=== PATIENT | female | born 1970 | race Caucasian/White ===

== ENCOUNTER 2022-05-30 14:26 | Emergency (ER) | payer OTHER ==
[~2022-05-30] VITALS: Ht 172.7 cm; Wt 46.8 kg
[~2022-05-30 14:26] MED LIST: NO HOME MEDICATIONS
[2022-05-30 14:39] VITALS: TEMP 98.7
[2022-05-30 15:18] LABS: BASO # 0.1 K/mm3 (0.0-0.2); BASO % 1.5 % (0.0-2.0); EOS % 0.5 % (0.0-4.0); GRAN # 3.4 K/mm3 (1.4-6.5); GRAN % 62.8 % (42.2-75.2); HEMATOCRIT 40.9 % (37.0-47.0); HEMOGLOBIN 13.4 g/dl (12.5-16.0); LYMPH # 1.6 K/mm3 (1.2-3.4); LYMPH % 28.8 % (20.0-51.0); MEAN CELL VOLUME 92 fl (80.0-100.0); MEAN CORPUSCULAR HEMOGLOBIN 30 pg (27-31); MEAN CORPUSCULAR HGB CONC 33 g/dl (33.0-37.0); MEAN PLATELET VOLUME 9.3 fl (7.4-10.4); MONO # 0.3 K/mm3 (0.1-0.6); PLATELET COUNT 289 K/mm3 (130-400); RED BLOOD COUNT 4.44 M/mm3 (4.10-5.30); REDCELL DISTRIBUTION WIDTH-CV 12.5 % (11.5-14.5)
[2022-05-30 15:34] LABS: ALANINE AMINOTRANSFERASE 20 U/L (0-55); ALBUMIN 4.4 gm/dL (3.5-5.0); ALKALINE PHOSPHATASE 93 U/L (40-150); ANION GAP 11 mmol/L (7-16); AST,SGOT 16 U/L (5-34); BILIRUBIN,TOTAL 0.6 mg/dL (0.2-1.2); BLOOD UREA NITROGEN 15 mg/dL (10-20); CALCIUM 9.9 mg/dL (8.4-10.2); CARBON DIOXIDE 27 mmol/L (22-29); CHLORIDE 106 mmol/L (98-107); CREATININE, serum 0.95 mg/dL (0.57-1.11); GLUCOSE 100 mg/dL (70-99); POTASSIUM 3.7 mmol/L (3.5-4.5); SODIUM 144 mmol/L (136-145); TOTAL PROTEIN 7.8 gm/dL (6.2-8.1)
[2022-05-30 15:35] LABS: ACETAMINOPHEN < 1.0 ug/mL (10-30); ALCOHOL(ethanol),MEDICAL < 10 mg/dL (0-10); SALICYLATE < 5.0 mg/dL (15.0-30.0)
[2022-05-30 16:41] LABS: COLLECTION METHOD CLEAN CATCH
[2022-05-30 16:44] LABS: URINE APPEARANCE Clear (CLEAR/HAZY); URINE COLOR Yellow (YELLOW)
[2022-05-30 16:45] LABS: URINE BLOOD 1+ (NEGATIVE); URINE GLUCOSE Negative (NEGATIVE); URINE KETONE Negative (NEGATIVE); URINE NITRATE Negative (NEGATIVE); URINE PROTEIN(semi-quant) Negative (NEGATIVE); URINE UROBILINOGEN 0.2 E.U/dL (0.2-1.0)
[2022-05-30 16:56] LABS: TRICYCLIC ANTIDEPRESS URINE NEGATIVE
[2022-05-30 17:03] LABS: SQUAMOUS EPITHELIAL 0-2 /hpf (0-10); URINE BACTERIA None Seen /hpf (NONE SEEN); URINE RBC 0-2 /hpf (0-2)
[2022-05-30 17:37] VITALS: BP 130/83; PULSE 85
== END 2022-05-30 18:10 | disposition home or self-care (01) ==
LOC: COL.ER 14:26
PROVIDERS: Physician Assistant
DX: S09.90XA Unspecified injury of head, initial encounter (principal); S80.01XA Contusion of right knee, initial encounter; R45.851 Suicidal ideations; F32.A Depression, unspecified; Z28.310 Unvaccinated for COVID-19; W18.30XA Fall on same level, unspecified, initial encounter

== ENCOUNTER 2023-07-04 21:47 | Inpatient (IN) | payer OTHER ==
[~2023-07-04] VITALS: Ht 172.7 cm; Wt 54.1 kg
--- NOTE | 2023-07-04 23:00 | NUR ---
PATIENT ARRIVED VIA EMS FROM [facility] WITH RIGHT HIP FX. A&O. VSS. REPORTS MOD PAIN IN RLE WITH MOVEMENT. EMS GAVE FENTANYL DURING TRANSPORT. PATIENT IS BEDREST BUT ROLLS/MOVES IN BED WELL AND IS ABLE TO USE THE BED TRIPATHI. PATIENT IS A FORMER RN. SCD'S TO BLE. NPO. IV INFUSING VIA PUMP INTO LEFT AC. HEAD TO TOE WNL. HOSPITALIST NOTIFIED OF ARRIVAL. NO OTHER NEEDS AT THIS TIME. CALL LIGHT IN REACH.
[2023-07-04] MEDS ORDERED: ZYPREXA 5MG5 MG PO (23:10)
[2023-07-04] MEDS ORDERED: PRISTIQ 50 MG T50 MG PO (23:11)
[2023-07-04] MEDS ORDERED: IBU800 M1 PO (23:11)
[2023-07-04] MEDS ORDERED: NORCO 325 MG-7.1 TAB PO (23:12)
[2023-07-04 23:17] VITALS: BP 126/72; PULSE 90; TEMP 99.5
[2023-07-04] MEDS ORDERED: Acetaminophen 500 MG TAB PO PRN (23:30)
[2023-07-04] MEDS ORDERED: Morphine 4 MG/ML VIAL IV PRN (23:30)
[2023-07-04] MEDS ORDERED: oxyCODONE 5 MG TAB PO PRN (23:30)
[2023-07-04] MEDS ORDERED: fentaNYL 50 MCG/ML 2 ML VIAL IV PRN (23:45)
[2023-07-05] VITALS (18 sets, daily range): BP systolic 114–135; BP diastolic 65–86; PULSE 77–96; TEMP 97.8–100.4
[2023-07-05 00:33] LABS: BASO # 0.1 K/mm3 (0.0-0.2); BASO % 1.1 % (0.0-2.0); EOS # 0.1 K/mm3 (0.0-0.7); EOS % 0.8 % (0.0-4.0); GRAN # 6.1 K/mm3 (1.4-6.5); GRAN % 83.6 % (42.2-75.2); HEMATOCRIT 32.7 % (37.0-47.0); HEMOGLOBIN 11.4 g/dl (12.5-16.0); LYMPH # 0.7 K/mm3 (1.2-3.4); LYMPH % 9.2 % (20.0-51.0); MEAN CELL VOLUME 91 fl (80.0-100.0); MEAN CORPUSCULAR HEMOGLOBIN 32 pg (27-31); MEAN CORPUSCULAR HGB CONC 35 g/dl (33.0-37.0); MEAN PLATELET VOLUME 9.6 fl (7.4-10.4); MONO # 0.4 K/mm3 (0.1-0.6); PLATELET COUNT 230 K/mm3 (130-400); RED BLOOD COUNT 3.59 M/mm3 (4.10-5.30); REDCELL DISTRIBUTION WIDTH-CV 13.1 % (11.5-14.5)
[2023-07-05 00:40] LABS: INR 1.2 (0.8-3.0); PROTHROMBIN TIME 13.1 SECONDS (9.7-12.8)
[2023-07-05 00:46] LABS: ALBUMIN 3.7 gm/dL (3.5-5.0); BILIRUBIN,TOTAL 0.5 mg/dL (0.2-1.2); CALCIUM 8.2 mg/dL (8.4-10.2); CREATININE, serum 0.85 mg/dL (0.57-1.11); POTASSIUM 3.9 mmol/L (3.5-4.5); TOTAL PROTEIN 6.7 gm/dL (6.2-8.1)
[2023-07-05] MEDS ORDERED: OLANZapine 5 MG TAB PO SCH (01:27)
[2023-07-05] MEDS ORDERED: NS 1,000 ML IV SCH ×3 (01:45→16:30)
--- NOTE | 2023-07-05 03:32 | NUR ---
RADIOLOGY AT BEDSIDE TO OBTAIN CXR. RESPIRATORY ALREADY OBTAINED EKG. WAITING FOR PATIENT TO VOID FOR UA.
[2023-07-05 05:39] LABS: COLLECTION METHOD CLEAN CATCH
[2023-07-05 05:46] LABS: URINE APPEARANCE CLEAR (CLEAR/HAZY); URINE BLOOD 3+ (NEGATIVE); URINE COLOR YELLOW (YELLOW); URINE GLUCOSE NEGATIVE (NEGATIVE); URINE KETONE 3+ (NEGATIVE); URINE NITRATE NEGATIVE (NEGATIVE); URINE PROTEIN(semi-quant) NEGATIVE (NEGATIVE); URINE UROBILINOGEN 0.2 E.U/dL (0.2-1.0)
--- NOTE | 2023-07-05 09:39 | NUR ---
PATIENT ALERT AND ORIENTED X4. VSS. PATIENT HERE FOR RIGHT HIP FRACTURE. IV TO LEFT AC WITH NS RUNNING AT 75ML/HOUR. SCD'S ON. PATIENT REPORTING PAIN 01/24. ICE PACK TO RIGHT HIP. PATIENT ON ROOM AIR. DR KEMP GAVE VERBAL ORDER TO THIS NURSE TO ADMINISTER ORAL PAIN MEDICATION AND SCHEDULED PO MED IV MEDICATION WAS NOT DUE. PATIENT IN BED, CALL LIGHT IN REACH.
[2023-07-05] MEDS ORDERED: LR 1,000 ML IV SCH (10:00)
[2023-07-05] MEDS ORDERED: Morphine 4 MG/ML VIAL IV PRN ×2 (10:30→16:30)
[2023-07-05] MEDS ORDERED: Lidocaine PF 2% (20 MG/ML) 5 ML VIAL ONE (12:17)
[2023-07-05] MEDS ORDERED: Tranexamic Acid 1,000 MG/10 ML VIAL ONE ×2 (12:18→15:45)
[2023-07-05] MEDS ORDERED: Midazolam 2 MG/2 ML VIAL ONE (12:20)
--- NOTE | 2023-07-05 12:39 | NUR ---
PATIENT OFF OF FLOOR FOR SURGERY
--- NOTE | 2023-07-05 13:27 | NUR ---
Initial visit; Patient wasn't normally responsive and uttered a continuous humming sound and stopped to ask Fret Saw Operator to "cover her behind." Fret Saw Operator said she was already covered and wished her well, receiving no response.
--- NOTE | 2023-07-05 13:42 | NUR ---
workers compensation adjuster attended interdisciplinary clinical rounding with Dr. Stanton. Patient reports to be in significant pain and wants to go to surgery [facility]. SW met with patient to discuss discharge planning. Patient reports she lives at home alone in [place]. PCP is Amita Benedict, [facility]. Dom (son) P# [phone] and Corey (boyfriend) P# [phone]. No issues affording her medications but patient has concern about the hospital stay. No DPOA-HC and does not wish to complete one during the hospital stay. Patient has crutches no other DME. Patient reports to be independent with ADLS. Patient would like to return to either her father, son or boyfriend's home when she is ready for discharge. SW expressed PT and OT will meet with her after her surgery to determine if she needs any other services prior to returning home. Patient understood and expressed she wanted her surgery [facility]. Discharge plan: Home, PT/OT recommendations after surgery
[2023-07-05] MEDS ORDERED: Phenylephrine 10 MG/ML VIAL ONE (14:05)
[2023-07-05] MEDS ORDERED: Topical Skin Adhesive 1 EACH (1 ML) TOP ONE (15:40)
[2023-07-05] MEDS ORDERED: Ondansetron 4 MG/2 ML VIAL IV PRN (16:30)
[2023-07-05] MEDS ORDERED: Magnes Hydrox (MOM) 80 MG/ML 30 ML CUP PO PRN (16:30)
[2023-07-05] MEDS ORDERED: oxyCODONE 5 MG TAB PO PRN (16:30)
[2023-07-05] MEDS ORDERED: Naloxone 0.4 MG/ML VIAL IV PRN (16:30)
[2023-07-05] MEDS ORDERED: droPERidol 2.5 MG/ML 2 ML VIAL IV PRN (16:45)
[2023-07-05] MEDS ORDERED: HYDROmorphone 2 MG/1 ML VIAL IV PRN (16:45)
[2023-07-05] MEDS ORDERED: Meperidine 50 MG/ML 1 ML VIAL IV PRN (16:45)
[2023-07-05] MEDS ORDERED: fentaNYL 50 MCG/ML 2 ML VIAL IV PRN (16:45)
[2023-07-05] MEDS ORDERED: Acetaminophen 500 MG TAB PO SCH (17:18)
[2023-07-05] MEDS ORDERED: ceFAZolin 1 G in Water For Injection,Sterile 10 ML IV SCH (20:18)
[2023-07-05] MEDS ORDERED: Melatonin 3 MG TAB PO PRN (21:00)
[2023-07-05] MEDS ORDERED: Sennosides/Docusate 8.6-50 MG TAB PO SCH (21:00)
[2023-07-05] MEDS ORDERED: Celecoxib 200 MG CAP PO SCH (21:00)
[2023-07-06] VITALS (15 sets, daily range): BP systolic 82–128; BP diastolic 38–77; PULSE 78–94; TEMP 98–99.6
--- NOTE | 2023-07-06 03:22 | NUR ---
PT IS RESTING IN BED. AT THE BEDSIDE. ALSTON IN PLACE DRAINING URINE. ICE PACK ON HER INCISION SITE. IV INFUSING FLUIDS. SHE IS MOANING IN THE BED, SHE STATES THAT IT HELPS HER. PT COMPLAINS OF DISCOMFORT AND WE REPOSITION HER. CALL JOSÉ WITH THE PATIENT.
[2023-07-06 06:49] LABS: HEMATOCRIT 26.1 % (37.0-47.0)
[2023-07-06] MEDS ORDERED: Polyethylene Glycol 3350 17 GM PDS PO SCH (09:00)
[2023-07-06] MEDS ORDERED: Calcium Carbonate 500 MG TAB PO SCH (09:00)
[2023-07-06] MEDS ORDERED: Ascorbic Acid 500 MG TAB PO SCH (09:00)
[2023-07-06] MEDS ORDERED: Ergocalciferol 1.25 MG (50,000 UNITS) CAPSULE PO SCH (09:00)
--- NOTE | 2023-07-06 09:33 | NUR ---
PATIENT ALERT AND ORIENTED X4. VSS. PATIENT HERE FOR RIGHT HIP FRACTURE. AQUACELL TO RIGHT HIP, CDI. PATIENT REPORTS PAIN 6/10, REQUESTS PAIN MEDICATION. IV INT. GAMALIEL VILLAFUERTE'Danis THIS AM, PATIENT VOIDED WITH NO ISSUES. PATIENT WORKING WITH THERAPY AND GETTING UP TO CHAIR WITH ALARM. BREAKFAST ORDERED. NO FURTHER NEEDS. CHAIR ALARM ON. CALL LIGHT IN REACH.
[2023-07-06] MEDS ORDERED: Multivitamin TAB PO SCH (12:00)
--- NOTE | 2023-07-06 21:15 | NUR ---
Patient resting in bed. Denies any pain at this time. Snack provided, denies any other needs. Assessment complete. IV in left AC flushes easily with no complications. Call light and personal items in reach. Bed in low position and bed alarm on.
--- NOTE | 2023-07-06 23:38 | NUR ---
Hospitalist Janet called for patients blood pressure of 89/52 with a MAP of 64. Previous blood pressures were soft but the MAP was still 65 or above and no antihypertensives were given with evening meds. Recieved orders for a stat H&H and 500mL bolus of LR.
[2023-07-06] MEDS ORDERED: LR 500 ML IV ONE (23:45)
[2023-07-07] VITALS (17 sets, daily range): BP systolic 82–116; BP diastolic 51–70; PULSE 60–98; TEMP 98.1–99.3
[2023-07-07 00:27] LABS: HEMATOCRIT 24.5 % (37.0-47.0); HEMOGLOBIN 8.4 g/dl (12.5-16.0)
--- NOTE | 2023-07-07 00:35 | NUR ---
Hospitalist Janet called for improved blood pressure of 92/56 with a MAP of 68 and Hgb level of 8.4. Recievied orders for LR @75mL/hr.
[2023-07-07] MEDS ORDERED: LR 1,000 ML IV SCH (00:45)
--- NOTE | 2023-07-07 06:00 | NUR ---
Patient resting in bed with eyes closed. Respirations even and unlaborded. No signs of pain or discomfort at this time. Patient had some hypotension over night and a 500mL bolus of LR was given and Hbg was 8.4 on recheck. Patient ambulated well in the hallway with walker. No other changes over night. Call light and personal items in reach. Bed in low position and bed alarm on.
[2023-07-07 06:37] LABS: BASO # 0.1 K/mm3 (0.0-0.2); BASO % 0.9 % (0.0-2.0); EOS # 0.3 K/mm3 (0.0-0.7); EOS % 5.2 % (0.0-4.0); GRAN % 71.6 % (42.2-75.2); LYMPH # 0.8 K/mm3 (1.2-3.4); LYMPH % 13.8 % (20.0-51.0); MEAN CELL VOLUME 90 fl (80.0-100.0); MEAN CORPUSCULAR HGB CONC 34 g/dl (33.0-37.0); MEAN PLATELET VOLUME 9.8 fl (7.4-10.4); MONO # 0.5 K/mm3 (0.1-0.6); MONO % 8.1 % (1.7-9.3); PLATELET COUNT 199 K/mm3 (130-400); RED BLOOD COUNT 2.81 M/mm3 (4.10-5.30); REDCELL DISTRIBUTION WIDTH-CV 13.1 % (11.5-14.5)
[2023-07-07 06:39] LABS: HEMATOCRIT 25.4 % (37.0-47.0); HEMOGLOBIN 8.6 g/dl (12.5-16.0); MEAN CORPUSCULAR HEMOGLOBIN 31 pg (27-31)
[2023-07-07 06:56] LABS: CALCIUM 7.5 mg/dL (8.4-10.2); CREATININE, serum 0.84 mg/dL (0.57-1.11); POTASSIUM 4.1 mmol/L (3.5-4.5)
--- NOTE | 2023-07-07 08:37 | NUR ---
Late entry: On 07/06/23, LETHA reviewed PT/OT notes whom are recommending home health and a walker. LETHA met with patient and provided the medicare.gov list of options for home health. Patient reported she needs to speak with her boyfriend to make sure he is okay with her having home health in his home. Patient expressed she does not have a walker. LETHA obtained a DME order from Dr. Stanton. LETHA faxed walker order to home medical.
--- NOTE | 2023-07-07 10:42 | NUR ---
PATIENT ALERT AND ORIENTED X4. VSS WITH THE EXCEPTION OF BP WHICH IS RUNNING SOFT. PATIENT ON LR AT 150 INTO LEFT AC. PATIENT DENIES ANY PAIN THIS MORNING. PATIENT TOLERATING PO. PATIENT DENIES ANY FURTHER NEEDS. CALL LIGHT IN REACH. CHAIR ALARM ON.
--- NOTE | 2023-07-07 10:56 | NUR ---
ALERT, ORIENTED X4. SITTING IN CHAIR, LEGS ELEVATED. PATIENT DENIES ANY PAIN AT THIS TIME. LASHONDA HOSE ON BLE. ICE PACK ON RIGHT HIP. PALPABLE BILATERAL PEDAL PULSES.
--- NOTE | 2023-07-07 11:22 | NUR ---
clerical production worker attended interdisciplinary clinical rounding with Dr. Guzman. Patient needs a unit of blood and may be able to discharge tomorrow home with home health. SW met with patient to discuss discharge planning. Patient confirmed she would stay with her boyfriend whom lives on a single level home. Patient chose [facility] as her first preference, second perference is [facility].
--- NOTE | 2023-07-07 11:52 | NUR ---
SW Student faxed HH referral to [facility] (fax#[phone]). Discharge Plan: Home with HH
--- NOTE | 2023-07-07 12:00 | NUR ---
VITAL SIGNS OBTAINED PRIOR TO BLOOD TRANSFUSION, TEMP AT 99.0, DR NAYLOR NOTIFIED. NO FURTHER ORDERS.
--- NOTE | 2023-07-07 15:57 | NUR ---
LETHA was notified that [facility] cannot accept patient. LETHA secure emailed referral to [facility]. Discharge plan: Home with [facility]
[2023-07-08] VITALS (8 sets, daily range): BP systolic 105–128; BP diastolic 67–82; PULSE 75–100; TEMP 98.2–98.7
--- NOTE | 2023-07-08 01:54 | NUR ---
PATIENT RESTING WITH EYES CLOSED UPON ARRIVAL. TYLENOL ADMINISTERED PER JUN. PATIENT STATES PAIN IS AROUND A 5/10. THIS NURSE ASSISTED PATIENT WITH AMBULATING TO BATHROOM. GAIT IS STEADY. ALL NEEDS MET AT THIS TIME. WILL MONITOR
[2023-07-08 05:46] LABS: HEMATOCRIT 27.7 % (37.0-47.0); HEMOGLOBIN 9.5 g/dl (12.5-16.0)
[2023-07-08 05:53] LABS: CALCIUM 7.4 mg/dL (8.4-10.2); CREATININE, serum 0.67 mg/dL (0.57-1.11); POTASSIUM 4.2 mmol/L (3.5-4.5)
--- NOTE | 2023-07-08 07:46 | NUR ---
PT UP TO BR WITH SBA, VOIDED AND RETURNED TO BED. PT ORDERING BREAKFAST AT THIS TIME. CONTINUE WITH PLAN OF CARE.
[2023-07-08] MEDS ORDERED: CELEBREX 200MG200 MG PO (09:12)
[2023-07-08] MEDS ORDERED: ASPI325T6 PO (09:13)
[2023-07-08] MEDS ORDERED: OSCAL 500 TAB500 MG PO (09:14)
[2023-07-08] MEDS ORDERED: MIRALAX238G PO (09:14)
[2023-07-08] MEDS ORDERED: TYLENOL 500MG500 MG PO (09:14)
[2023-07-08] MEDS ORDERED: SENNA-S 50 MG-81 TAB PO (09:14)
[2023-07-08] MEDS ORDERED: DRISDOL50000 IU PO (09:15)
[2023-07-08] MEDS ORDERED: DULCOLAX S10 MG/SUPP RC (09:15)
[2023-07-08] MEDS ORDERED: VITAMINC500CH PO (09:15)
[2023-07-08] MEDS ORDERED: ROXICODONE 55 MG/TAB PO ×2 (09:16→09:20)
[2023-07-08] MEDS ORDERED: MULTI VITAMINS1 TAB PO (09:16)
[2023-07-08] MEDS ORDERED: FERRO-TIME325 MG PO (09:16)
--- NOTE | 2023-07-08 09:27 | NUR ---
SW notified by attending to be discharging to home today with HH. SW Notified Home [facility] of discharge and requested walker to be delivered to room. Discharge paperwork faxed to [facility].
--- NOTE | 2023-07-08 11:09 | NUR ---
DISCHARGE ORDERS RECIEVED PT WAITING TO GET RIDE FROM FAMILY.
--- NOTE | 2023-07-08 12:54 | NUR ---
REVIEWED DISCHARGE INSTRUCTIONS WITH PT. QUESTIONS ANSWERED. PT EATING LUNCH AND FOR RIDE TO GET HER.
--- NOTE | 2023-07-08 13:18 | NUR ---
PT RIDE IS HERE AT THIS TIME. PT LEFT UNIT PER WHEEL CHAIR WITH STAFF.
== END 2023-07-08 13:19 | disposition home health service (06) | DRG 522 ==
LOC: SURG 21:47
PROVIDERS: Nurse Practitioner Family; Orthopaedic Surgery; Physician Assistant; ADMIT Internal Medicine
PROC: 0SR90J9 Replacement of Right Hip Joint with Synthetic Substitute, Cemented, Open Approach (ICD-10-PCS; principal; 2023-07-05 12:15)
PROC: 30233N1 Transfusion of Nonautologous Red Blood Cells into Peripheral Vein, Percutaneous Approach (ICD-10-PCS; 2023-07-07)
DX: M80.051A Age-related osteoporosis with current pathological fracture, right femur, initial encounter for fracture (principal); E87.20 Acidosis, unspecified; I95.9 Hypotension, unspecified; F41.9 Anxiety disorder, unspecified; K59.00 Constipation, unspecified; F32.A Depression, unspecified; D64.9 Anemia, unspecified; Z87.820 Personal history of traumatic brain injury; Z79.899 Other long term (current) drug therapy
CPT/HCPCS: A4314; A6197; A9284; C1713; C1776; J0665; J0690; J2250; J2270; J2371; J2704; J3010; J7030; J7120; P9016